=== PATIENT | male | born 1980 | race Caucasian/White ===

== ENCOUNTER 2018-05-16 17:04 | Emergency (ER) | payer OTHER ==
--- NOTE | 2018-05-16 17:31 | PDOC ---
Rapid Medical Evaluation Time Seen by Provider: 05/16/18 17:22 Medical Evaluation: Allergies Allergy/AdvReac Type Severity Reaction Status Date / Time No Known Allergies Allergy Verified 10/15/11 20:31 05/16/18 17:27 I have performed a brief in-person evaluation of this patient. The patient presents with a chief complaint of: Epigastric discomfort worse w/ food and a/w nausea since yesterday, worse when supine and unable to sleep due to same. Seen by pmd recently and started taking omeprazole yesterday. Seen for same in ED 2011 and dx w/ GERD, told to see GI but has not done so. No scope in past. H/o HTN, DM diet controlled. Pertinent physical exam findings:stable I have ordered the following:labs The patient will proceed to the ED for further evaluation. 05/16/18 17:32 Discharge Disposition - Diagnosis Epigastric pain - Referrals - Patient Instructions - Post Discharge Activity
[2018-05-16 17:34] VITALS: BP 162/94; PULSE 75; TEMP 99.3; BMI 40.0
[2018-05-16] MEDS ORDERED: FAMOTIDINE 20 MG/50 ML IVPB 20 MG/50 ML MG IVPB ONE ×2 (17:53→18:15)
[2018-05-16] MEDS ORDERED: MAG HYDROX/AL HYDROX/SIMETH 30 ML UNIT-DOSE CUP PO ONE (17:53)
[2018-05-16] MEDS ORDERED: ONDANSETRON 4 MG/2 ML VIAL IVPUSH ONE (17:54)
[2018-05-16] MEDS ORDERED: ONDANSETRON 4 MG/2 ML VIAL ONE (18:15)
[2018-05-16] MEDS ORDERED: MAG HYDROX/AL HYDROX/SIMETH 30 ML UNIT-DOSE CUP ONE (18:15)
--- NOTE | 2018-05-16 18:23 | PDOC ---
History of Present Illness - General Chief Complaint: Pain Stated Complaint: HeartBRUN Time Seen by Provider: 05/16/18 17:22 History Source: Patient Exam Limitations: No Limitations - History of Present Illness Initial Comments: 05/16/18 18:20 Patient is a 37 will male past medical history of hypertension, who presents to the emergency department for 2 days of epigastric pain, left upper quadrant pain and a burning sensation. Patient states that the burning sensation moves his throat. He states that eating makes the pain worse. He states that laying down also makes the pain worse. He has been unable to sleep the last 2 nights from the pain. He is tried taking omeprazole at home with little relief of symptoms. Also to nausea. Denies fevers, chills, shortness of breath, difficulty breathing, chest pain, vomiting, diarrhea and constipation. Past History - Travel Traveled outside of the country in the last 30 days: No Close contact w/someone who was outside of country & ill: No - Past Medical History Allergies/Adverse Reactions: Allergies Allergy/AdvReac Type Severity Reaction Status Date / Time No Known Allergies Allergy Verified 05/16/18 17:31 Home Medications: Ambulatory Orders Atenolol [Tenormin] 100 mg PO DAILY 05/16/18 Omeprazole 40 mg PO DAILY 05/16/18 Diabetes: Yes HTN: Yes - Suicide/Smoking/Psychosocial Hx Smoking Status: No Smoking History: Never smoked Number of Cigarettes Smoked Daily: 0 Review of Systems - Review of Systems Able to Perform ROS?: Yes Comments:: 05/16/18 18:18 CONSTITUTIONAL: Absent: fever, chills, diaphoresis, generalized weakness, malaise, loss of appetite HEENT: Absent: rhinorrhea, nasal congestion, throat pain, throat swelling, difficulty swallowing, mouth swelling, ear pain, eye pain, visual Changes CARDIOVASCULAR: Absent: chest pain, loss of consciousness, palpitations, irregular heart rate, peripheral edema RESPIRATORY: Absent: cough, shortness of breath, dyspnea with exertion, orthopnea, wheezing, stridor, hemoptysis GASTROINTESTINAL: Present: reflux, abdominal pain Absent: abdominal distension, nausea, vomiting , diarrhea, constipation, melena, hematochezia GENITOURINARY: Absent: dysuria, frequency, urgency, hesitancy, hematuria, flank pain, genital pain MUSCULOSKELETAL: Absent: myalgia, arthralgia, joint swelling SKIN: Absent: rash, itching, pallor HEMATOLOGIC/IMMUNOLOGIC: Absent: easy bleeding, easy bruising, lymphadenopathy, frequent infections ENDOCRINE: Absent: unexplained weight gain, unexplained weight loss, heat intolerance, cold intolerance NEUROLOGIC: Absent: headache, focal weakness or paresthesias, dizziness, unsteady gait, seizure, mental status changes, bladder or bowel incontinence PSYCHIATRIC: Absent: anxiety, depression, suicidal or homicidal ideation, hallucinations. Is the patient limited Latvian proficient: No *Physical Exam - Vital Signs Last Vital Signs Temp Pulse Resp BP Pulse Ox 99.3 F 75 18 162/94 98 05/16/18 17:31 05/16/18 17:31 05/16/18 17:31 05/16/18 17:31 05/16/18 17:31 - Physical Exam Comments: 05/16/18 18:18 GENERAL: Well developed, well nourished. Awake and alert. No acute distress. HEENT: Normocephalic, atraumatic. PERRLA, EOMI. No conjunctival pallor. Sclera are non- icteric. Moist mucous membranes. Oropharynx is clear. NECK: Supple. Full ROM. No JVD. Carotid pulses 2+ and symmetric, without bruits. No thyromegaly. No lymphadenopathy. CARDIOVASCULAR: Regular rate and rhythm. No murmurs, rubs, or gallops. Distal pulses are 2+ and symmetric. PULMONARY: No evidence of respiratory distress. Lungs clear to auscultation bilaterally. No wheezing, rales or rhonchi. ABDOMINAL: TTP of the LUQ. Soft. Non-distended. No rebound or guarding. No organomegaly. Normoactive bowel sounds. MUSCULOSKELETAL Normal range of motion at all joints. No bony deformities or tenderness. No CVA tenderness. EXTREMITIES: No cyanosis. No clubbing. No edema. No calf tenderness. SKIN: Warm and dry. Normal capillary refill. No rashes. No jaundice. NEUROLOGICAL: Alert, awake, appropriate. Cranial nerves 2-12 intact. No deficits to light touch and temperature in face, upper extremities and lower extremities. No motor deficits in the in face, upper extremities and lower extremities. Normoreflexic in the upper and lower extremities. Normal speech. Toes are down- going bilaterally. Gait is normal without ataxia. PSYCHIATRIC: Cooperative. Good eye contact. Appropriate mood and affect. Moderate Sedation - Procedure Monitoring Vital Signs: Procedure Monitoring Vital Signs Temperature 99.3 F 05/16/18 17:31 Pulse Rate 75 05/16/18 17:31 Respiratory Rate 18 05/16/18 17:31 Blood Pressure 162/94 05/16/18 17:31 O2 Sat by Pulse Oximetry (%) 98 05/16/18 17:31 ED Treatment Course - LABORATORY CBC & Chemistry Diagram: 05/16/18 17:53 05/16/18 17:53 Medical Decision Making - Medical Decision Making 05/16/18 18:21 Patient is a 37-year-old male with past medical she of hypertension, presents to the emergency department today for reflux symptoms and left upper quadrant tenderness. On exam lungs are clear, patient with left upper quadrant tenderness. Differential diagnosis includes but is not limited to reflux, gastritis, PUD. Less likely ACS. Labs obtained from [facility]. EKG ordered. Maalox, Pepcid, Zofran ordered. Reevaluate Sign out given to Anitha EMERSON; dispo pending labs and EKG. *DC/Admit/Observation/Transfer Diagnosis at time of Disposition: Epigastric pain - Discharge Dispostion Disposition: HOME Condition at time of disposition: Stable - Referrals Referrals: Phillip Geronimo MD [Staff Physician] - ON STAFF,NOT [Primary Care Provider] - - Patient Instructions Printed Discharge Instructions: DI for Epigastric Pain Additional Instructions: Avoid acidic food Take the prescribed medication from your doctor for reflux Follow-up with a GI doctor or the one listed on your discharge/Dr. Geronimo [phone] Return back to the emergency department for severe/persistent or worsening symptoms or any concerns - Post Discharge Activity
[2018-05-16 18:24] LABS: URINE APPEARANCE CLEAR; URINE BILIRUBIN NEGATIVE (<2.0 mg/dL); URINE COLOR YELLOW; URINE GLUCOSE (UA) NEGATIVE (NEGATIVE); URINE KETONE NEGATIVE (NEGATIVE); URINE LEUK ESTERASE NEGATIVE (NEGATIVE); URINE NITRITE NEGATIVE (NEGATIVE); URINE PROTEIN 1+ (NEGATIVE)
[2018-05-16 18:27] LABS: URINE MUCUS RARE
[2018-05-16 18:28] LABS: BASO % 0.4 % (0-2.0); EOS % 2.9 % (0-4.5); HEMATOCRIT 44.6 % (35.4-49); LYMPH % 22.7 % (8-40); MCH 31.6 pg (25.7-33.7); MCHC 35.8 g/dl (32.0-35.9); MEAN CELL VOLUME 88.2 fl (80-96); MEAN PLT VOLUME 9.2 fl (7.5-11.1); MONO % 9.2 % (3.8-10.2); NEUT % 64.8 % (42.8-82.8); PLATELET COUNT 227 K/MM3 (134-434); RBC 5.06 M/mm3 (4.00-5.60); WHITE BLOOD COUNT 8.1 K/mm3 (4.0-10.0)
[2018-05-16 18:54] LABS: ALBUMIN 4.4 g/dl (3.4-5.0); ALK PHOS 77 U/L (45-117); ANION GAP 8 MMOL/L (8-16); BILIRUBIN,TOTAL 2.7 mg/dL (0.2-1); BLOOD UREA NITROGEN 17 mg/dL (7-18); CALCIUM 8.4 mg/dL (8.5-10.1); CHLORIDE 104 mmol/L (98-107); CO2 26 mmol/L (21-32); CREATININE 1.1 mg/dL (0.55-1.3); GLUCOSE,RANDOM 83 mg/dL (74-106); LIPASE 109 U/L (73-393); POTASSIUM 3.8 mmol/L (3.5-5.1); SGOT/AST 24 U/L (15-37); SGPT/ALT 48 U/L (13-61); SODIUM 138 mmol/L (136-145); TOT PROT 7.7 g/dl (6.4-8.2)
[2018-05-16 18:58] LABS: ALBUMIN 4.3 g/dl (3.4-5.0); ALK PHOS 78 U/L (45-117); ANION GAP 7 MMOL/L (8-16); BILIRUBIN,TOTAL 2.4 mg/dL (0.2-1); BLOOD UREA NITROGEN 16 mg/dL (7-18); CALCIUM 8.5 mg/dL (8.5-10.1); CHLORIDE 104 mmol/L (98-107); CO2 27 mmol/L (21-32); CREATININE 1.1 mg/dL (0.55-1.3); GLUCOSE,RANDOM 83 mg/dL (74-106); POTASSIUM 3.8 mmol/L (3.5-5.1); SGOT/AST 24 U/L (15-37); SGPT/ALT 49 U/L (13-61); SODIUM 138 mmol/L (136-145); TOT PROT 7.6 g/dl (6.4-8.2)
[2018-05-16] MEDS ORDERED: DICYCLOMINE HCL 20 MG TABLET PO PRN (19:18)
--- NOTE | 2018-05-16 19:23 | PDOC ---
*Physical Exam - Vital Signs Last Vital Signs Temp Pulse Resp BP Pulse Ox 99.3 F 75 18 162/94 98 05/16/18 17:31 05/16/18 17:31 05/16/18 17:31 05/16/18 17:31 05/16/18 17:31 - Physical Exam Comments: 05/16/18 19:17 Best Contact: PCP:Dr. Sanchez [facility] Pmhx:HTN dx @26 yo Pshx: Denies Allergies: Denies FH: mother 63yo alive/healthy; Father 68 yo alive healthy Social Hx: Cigarettes/ 0 Alcohol/ 0 Drugs/0 This note is being dictated in front of the patient. 37-year-old female male patient presents to the emergency department complaining of epigastric discomfort since yesterday. Patient attributes it to not eating much or sleeping well due to nasal congestion. Patient states he is alert. He is not complaining of pain but discomfort to the Gastric area due to anorexia since yesterday. Patient things he eats, the discomfort will get worse. Patient denies nausea /vomiting/diarrhea, headache, dizziness, lightheadedness, neck pain/stiffness, back pains, chest pain, shortness of breath, flank pains, urinary symptoms. No history of similar symptoms. Patient had blood work done at his PMDs office times one week ago. Hemoglobin A1c was 5.5 times one week ago. Heart Score/ECG Review - History History: Slightly suspicious - Electrocardiogram EKG: Normal - Age Age: >/= 65 - Risk Factors Risk Factors Heart Score: Yes Hx Hypertension Based on the list above the patient has:: 1-2 risk factors - Troponin Troponin: </= normal limit - Score Heart Score - Total: 3 ED Treatment Course - LABORATORY CBC & Chemistry Diagram: 05/16/18 17:53 05/16/18 17:53 - ADDITIONAL ORDERS Additional order review: Laboratory Results 05/16/18 05/16/18 05/16/18 18:10 17:53 17:53 Sodium 138 138 Potassium 3.8 3.8 Chloride 104 104 Carbon Dioxide 26 27 Anion Gap 8 7 L BUN 17 16 Creatinine 1.1 1.1 Creat Clearance w eGFR > 60 > 60 Random Glucose 83 83 Calcium 8.4 L 8.5 Total Bilirubin 2.7 H 2.4 H AST 24 24 ALT 48 49 Alkaline Phosphatase 77 78 Creatine Kinase 241 Troponin I < 0.02 B-Natriuretic Peptide Total Protein 7.7 7.6 Albumin 4.4 4.3 Lipase 109 Urine Color Yellow Urine Appearance Clear Urine pH 6.0 Ur Specific [place] 1.015 Urine Protein 1+ H Urine Glucose (UA) Negative Urine Ketones Negative Urine Blood Negative Urine Nitrite Negative Urine Bilirubin Negative Urine Urobilinogen 2.0 Ur Leukocyte Esterase Negative Urine WBC (Auto) 1 Urine RBC (Auto) 1 Urine Mucus Rare 05/16/18 17:53 Sodium Potassium Chloride Carbon Dioxide Anion Gap BUN Creatinine Creat Clearance w eGFR Random Glucose Calcium Total Bilirubin AST ALT Alkaline Phosphatase Creatine Kinase Troponin I B-Natriuretic Peptide 105.1 Total Protein Albumin Lipase Urine Color Urine Appearance Urine pH Ur Specific [place] Urine Protein Urine Glucose (UA) Urine Ketones Urine Blood Urine Nitrite Urine Bilirubin Urine Urobilinogen Ur Leukocyte Esterase Urine WBC (Auto) Urine RBC (Auto) Urine Mucus 05/16/18 17:53 RBC 5.06 MCV 88.2 MCHC 35.8 RDW 14.0 MPV 9.2 Neutrophils % 64.8 Lymphocytes % 22.7 D Monocytes % 9.2 Eosinophils % 2.9 Basophils % 0.4 - Medications Given in the ED: ED Medications Discontinued Medications Generic Name Dose Route Start Last Admin Trade Name Freq PRN Reason Stop Dose Admin Al Hydroxide/Mg Hydroxide 30 ml 05/16/18 17:53 05/16/18 18:20 Mylanta Oral Suspension - PO 05/16/18 17:54 30 ml ONCE ONE Administration Famotidine/Sodium Chloride 20 mg in 50 mls @ 100 mls/hr 05/16/18 17:53 18:20 Pepcid 20 Mg Premixed Ivpb - IVPB 05/16/18 18:22 100 mls/hr ONCE ONE Administration Ondansetron HCl 4 mg 05/16/18 17:54 05/16/18 18:20 Zofran Injection IVPUSH 05/16/18 17:55 4 mg ONCE ONE Administration Progress Note - Progress Note Progress Note: CONSTITUTIONAL: Absent: fever, chills, diaphoresis, generalized weakness, malaise, loss of appetite CARDIOVASCULAR: Absent: chest pain, loss of consciousness, palpitations, irregular heart rate, peripheral edema RESPIRATORY: Absent: cough, shortness of breath, dyspnea with exertion, orthopnea, wheezing, stridor, hemoptysis GASTROINTESTINAL: epigastric discomfort since yesterday Absent: abdominal distension, nausea, vomiting, diarrhea, constipation, melena, hematochezia GENITOURINARY: Absent: dysuria, frequency, urgency, hesitancy, hematuria, flank pain, genital pain MUSCULOSKELETAL: Absent: myalgia, arthralgia, joint swelling SKIN: Absent: rash, itching, pallor HEMATOLOGIC/IMMUNOLOGIC: Absent: easy bleeding, easy bruising, lymphadenopathy, frequent infections ENDOCRINE: Absent: unexplained weight gain, unexplained weight loss, heat intolerance, cold intolerance NEUROLOGIC: Absent: headache, focal weakness or paresthesias, dizziness, unsteady gait, seizure, mental status changes, bladder or bowel incontinence PSYCHIATRIC: Absent: anxiety, depression, suicidal or homicidal ideation, hallucinations. GENERAL: Well developed, well nourished. Awake and alert. No acute distress. HEENT: Normocephalic, atraumatic. PERRLA, EOMI. No conjunctival pallor. Sclera are non- icteric. Moist mucous membranes. Oropharynx is clear. NECK: Supple. Full ROM. No JVD. Carotid pulses 2+ and symmetric, without bruits. No thyromegaly. No lymphadenopathy. CARDIOVASCULAR: Regular rate and rhythm. No murmurs, rubs, or gallops. Distal pulses are 2+ and symmetric. PULMONARY: No evidence of respiratory distress. Lungs clear to auscultation bilaterally. No wheezing, rales or rhonchi. ABDOMINAL: Soft. Non-tender. Non-distended. No rebound or guarding. No organomegaly. Normoactive bowel sounds. MUSCULOSKELETAL Normal range of motion at all joints. No bony deformities or tenderness. No CVA tenderness. EXTREMITIES: No cyanosis. No clubbing. No edema. No calf tenderness. SKIN: Warm and dry. Normal capillary refill. No rashes. No jaundice. 1920hrs: Pt feels better after being medicated. Wishes to be d/c *DC/Admit/Observation/Transfer Diagnosis at time of Disposition: Epigastric pain - Discharge Dispostion Disposition: HOME Condition at time of disposition: Stable Decision to Admit order: No - Referrals Referrals: ON STAFF,NOT [Primary Care Provider] - Phillip Geronimo MD [Staff Physician] - - Patient Instructions Printed Discharge Instructions: DI for Epigastric Pain Additional Instructions: Avoid acidic food Take the prescribed medication from your doctor for reflux Follow-up with a GI doctor or the one listed on your discharge/Dr. Geronimo [phone] Return back to the emergency department for severe/persistent or worsening symptoms or any concerns - Post Discharge Activity
--- NOTE | 2018-05-17 12:48 | EKG ---
Test Reason : Blood Pressure : / mmHG Vent. Rate : 071 BPM Atrial Rate : 071 BPM P-R Int : 146 ms QRS Dur : 102 ms QT Int : 402 ms P-R-T Axes : 037 055 052 degrees QTc Int : 436 ms NORMAL SINUS RHYTHM NORMAL ECG NO PREVIOUS ECGS AVAILABLE Confirmed by MD JUAREZ, JORGE ([id number]) on 05/17/2018 12:47:58 PM Referred By: KI HOPKINS Confirmed By:JORGE PIZARRO MD
== END 2018-05-16 19:46 | disposition home or self-care (01) ==
LOC: JER 17:04
PROC: 3E033GC Introduction of Other Therapeutic Substance into Peripheral Vein, Percutaneous Approach (ICD-10-PCS; principal; 2018-05-16)
PROC: 3E033GC Introduction of Other Therapeutic Substance into Peripheral Vein, Percutaneous Approach (ICD-10-PCS; 2018-05-16)
DX: R10.13 Epigastric pain (principal); I10 Essential (primary) hypertension; E11.9 Type 2 diabetes mellitus without complications
CPT/HCPCS: 36415; 80053; 81003; 81015; 82550; 82553; 83690; 83880; 84484; 85025; 93005; 93010; 99281-25

== ENCOUNTER 2020-07-29 20:07 | Emergency (ER) | payer OTHER ==
[2020-07-29 20:35] VITALS: BMI 38.3
[2020-07-29] MEDS ORDERED: ACETAMINOPHEN 325 MG TABLET (FP) PO ONE (21:18)
[2020-07-29 22:05] LABS: BASO % 0.6 % (0-2.0); EOS % 2.8 % (0-4.5); HEMATOCRIT 47.2 % (35.4-49); HEMOGLOBIN 16.1 GM/dL (11.7-16.9); LYMPH % 26.8 % (8-40); MCH 30.9 pg (25.7-33.7); MCHC 34.1 g/dl (32.0-35.9); MEAN CELL VOLUME 90.5 fl (80-96); MEAN PLT VOLUME 9.6 fl (7.5-11.1); MONO % 7.1 % (3.8-10.2); NEUT % 62.7 % (42.8-82.8); PLATELET COUNT 251 K/MM3 (134-434); RBC 5.22 M/mm3 (4.00-5.60); RDW 13.8 % (11.9-15.9); WHITE BLOOD COUNT 10.1 K/mm3 (4.0-10.0)
[2020-07-29 22:10] LABS: CHLORIDE 103 mmol/L (98-107); POTASSIUM 3.9 mmol/L (3.5-5.1); SODIUM 140 mmol/L (136-145)
[2020-07-29 22:12] LABS: CALCIUM 9.7 mg/dL (8.5-10.1)
[2020-07-29 22:13] LABS: ALBUMIN 4.5 g/dl (3.4-5.0); ANION GAP 6 MMOL/L (8-16); BLOOD UREA NITROGEN 33.3 mg/dL (7-18); CO2 31 mmol/L (21-32); GLUCOSE,RANDOM 89 mg/dL (74-106); LIPASE 111 U/L (73-393)
[2020-07-29 22:15] LABS: SGPT/ALT 43 U/L (13-61)
[2020-07-29 22:16] LABS: CREATININE 1.5 mg/dL (0.55-1.3); SGOT/AST 21 U/L (15-37)
[2020-07-29 22:17] LABS: BILIRUBIN,TOTAL 1.4 mg/dL (0.2-1); TOT PROT 8.2 g/dl (6.4-8.2)
[2020-07-29 22:18] LABS: ALK PHOS 81 U/L (45-117)
[2020-07-29] MEDS ORDERED: ACETAMINOPHEN 325 MG TABLET (FP) ONE (22:22)
[2020-07-29] MEDS ORDERED: MAG HYDROX/AL HYDROX/SIMETH 30 ML UNIT-DOSE CUP PO ONE (22:52)
[2020-07-29] MEDS ORDERED: FAMOTIDINE 20 MG/50 ML IVPB 20 MG/50 ML MG IVPB ONE ×2 (22:52→23:40)
[2020-07-29] MEDS ORDERED: MAG HYDROX/AL HYDROX/SIMETH 30 ML UNIT-DOSE CUP ONE (23:39)
[2020-07-30 01:07] VITALS: BP 136/84; PULSE 66; TEMP 98.6
== END 2020-07-30 03:00 | disposition home or self-care (01) ==
LOC: JER 20:07
PROC: 3E033GC Introduction of Other Therapeutic Substance into Peripheral Vein, Percutaneous Approach (ICD-10-PCS; principal; 2020-07-29)
DX: R07.9 Chest pain, unspecified (principal)
CPT/HCPCS: 36415; 71046-TC-FY; 80053; 82550; 82553; 83690; 84484; 85025; 93005; 93010; 99285-25